=== PATIENT | female | born 1995 | race Caucasian/White ===

== ENCOUNTER 2016-10-20 13:12 | Emergency (ER) | payer OTHER ==
[~2016-10-20] VITALS: Ht 170.2 cm; Wt 67.0 kg
[2016-10-20 13:21] VITALS: TEMP 36.7; Ht 170.2 cm; Wt 67.0 kg
[2016-10-20] MEDS ORDERED: ONDANSETRON 4MG OD TAB PO STA (13:37)
[2016-10-20] MEDS ORDERED: LEVOIUD IU (13:44)
--- NOTE | 2016-10-20 14:37 | DIAGNOSTIC IMAGING REPORT ---
CT OF THE HEAD WITHOUT CONTRAST CLINICAL HISTORY: Fall with headache, nausea and vomiting. Concussion. COMPARISON STUDY: No previous studies for comparison. TECHNIQUE: Helical axial images of the head were obtained without IV contrast. Automated exposure control was utilized for the study. FINDINGS: No acute intracranial hemorrhage, midline shift or mass effect is present. Brain volume is normal. Ventricular system is normal. Basilar cisterns are patent. There are no extra-axial collections. Roque-white differentiation is maintained. There is no calvarial fracture. IMPRESSION: 1. No acute intracranial findings. 2. No calvarial fracture. Electronically signed by: Kris Pack M.D. 10/20/2016 2:36 PM Dictated Date/Time: 10/20/2016 2:33 PM
--- NOTE | 2016-10-20 14:49 | DIAGNOSTIC IMAGING REPORT ---
MAXILLOFACIAL CT WITHOUT CONTRAST CLINICAL HISTORY: R orbital pain; struck with ball COMPARISON STUDY: None. TECHNIQUE: A maxillofacial CT was performed without IV contrast. Coronal and sagittal reformats were viewed. FINDINGS: No acute facial fracture is identified. The globes are intact. There is no retrobulbar hematoma. There is a mucous retention cyst within the left maxillary sinus with mild mucosal thickening of the right maxillary sinus. There is no skull base fracture or fracture within visualized portions of the upper cervical spine. IMPRESSION: 1. No acute facial fracture. 2. Globes intact with no retrobulbar hematoma. Electronically signed by: Kris Pack M.D. 10/20/2016 2:47 PM Dictated Date/Time: 10/20/2016 2:43 PM
[2016-10-20 15:55] VITALS: BP 112/73; PULSE 88; O2SAT 97
--- NOTE | 2016-10-20 21:27 | EMERGENCY ROOM VISIT NOTE ---
ED Visit Note First contact with patient: 13:27 Chief Complaint: Head injury. History of Present Illness: Ms. Mancuso is a 20-year-old white female who ambulates into the ED complaining of a possible head injury. Patient reports 2 evenings ago she was playing broom ball; ice hockey like game played on ice with a round ball and broom. While playing she slipped on the ice and fell backwards onto her occipital scalp. She reports at the time of the fall she did not have a loss of consciousness. Shortly after her fall she reports she was struck in the right orbit with the ball. After these injury she reports she was experiencing a mild headache that increased in intensity yesterday. Currently she describes her discomfort as a global pressure sensation. She rates her discomfort 7/10. Her pain is nonradiating. Her pain worsens with exposure to bright light. She has not identified any alleviating factors related to her discomfort. Associated with her pain she reports today she became nauseated shortly after waking and since that time has vomited multiple times. Additionally she complains of pain around the right orbit where she was struck with the ball. She describes this as an achy pain that becomes sharp with palpation. She does not rates this discomfort. She has taken ibuprofen yesterday for her pain and has had no relief of her discomfort. Additionally associated with her symptoms she is reporting that she is having mild dizziness predominantly with head movements and pressure behind the eyes. She denies fevers, chills, sweats, skin eruptions, skin color changes, vision changes, hearing changes, difficulty speaking, difficulty swallowing, difficulty ambulating/coordinating body movements, neck pain, back pain, chest pain, shortness of breath, abdominal pain, extremity weakness/numbness/tingling. Review of Systems: As noted above in history of present illness. All body systems were reviewed and found to be negative as noted above. Past Medical History: Patient denies. Current Medications: control. Allergies to Medications: Patient denies. Social History: Patient is currently University student; she felt safer home environment; she denies tobacco use; she admits to alcohol use. Physical Examination: Vital Signs: Date Time Temp Pulse Resp B/P Pulse Ox O2 Delivery O2 Flow Rate FiO2 10/20/16 15:55 88 112/73 97 10/20/16 13:56 16 4/30/17 13:21 36.7 82 20 107/71 97 Room Air GENERAL: 20-year-old female in mild distress due to pain, nontoxic-appearing, afebrile and hemodynamically stable. NEUROLOGICAL: Awake, alert and oriented to person, place and time. Answering questions appropriately and following commands. Normal gait. Good hand eye coordination. No focal motor or sensory deficits. [place] Coma Scale score 15. Romberg test unsteady but negative. Pronator drift test negative. Cranial nerves II through XII grossly intact. Normal rapid alternating movements of the hands. Able to spell and count backwards. Good short-term and long-term recall. Normal heel gomez test. SKIN: Warm, dry and pink. No soft tissue trauma noted. HEENT: Atraumatic and normocephalic. Skull: No bony deformity, tenderness, swelling or ecchymosis. No raccoon's eyes or turner signs. No drainage from the ears or the nostril; no hemotympanum. Face: Moderate tenderness over the right superior and inferior aspect of the orbit, the right medial nasal bone and over the first portion of the zygomatic arch. I do not appreciate any bony crepitus or ecchymosis. PERRLA. EOMI without nystagmus. Funduscopic examination was deferred due to light sensitivity. Sclera white and conjunctiva pink. No malocclusion. No intraoral trauma. Airway patent. Speech is normal and clear. Trachea midline. No jugular venous distention. BACK: No tenderness over the bony cervical and thoracic spine. Full range of motion of the cervical spine. EXTREMITIES: Moves all extremities well on command and with purpose. All distal neurovascular statuses are intact and equal bilaterally. 4/5 muscle strength in all movements of the shoulders, elbows, forearms, wrists, hips, knees and ankles against resistance. ED Course: Patient is assessed as noted above. Head CT: Was reviewed by myself and read by the radiologist showing no acute intracranial abnormalities or skull fractures. Facial CT: Was reviewed by myself and read by the radiologist and shows no facial fractures. Patient was offered pain medication and refused. Patient was given 4 mg of Zofran ODT for nausea. Patient was educated about tonight's findings and instructed on her treatment plan; she verbalizes understanding and agreement with this plan. Clinical Impression: Concussion. Facial pain. Disposition: Patient discharged home in stable condition; prior to departure she was reassessed and subjectively reported she was feeling better and rated her facial and head discomfort 5/10 and reported resolution of nausea. Plan: Patient was encouraged to use ibuprofen or acetaminophen every 6 hours as needed for pain. Patient was prescribed Zofran and encouraged to use 4 mg every 6 hours as needed for nausea/vomiting. Patient was encouraged to use ice over areas of pain on her face. Patient was encouraged to wish strenuous activity for the next 7 days. Patient was encouraged to avoid alcohol use for the next 48 hours. Patient was encouraged to follow-up with the local concussion clinic. Patient was educated on signs of worsening head injury. Patient was encouraged return ED for any signs of worsening head injury, uncontrolled pain or any new/concerning symptoms.
== END 2016-10-20 15:56 | disposition home or self-care (01) ==
LOC: C.EDB 13:15 → C.EDD 15:56
DX: S06.0X0A Concussion without loss of consciousness, initial encounter (principal); V00.218A Other ice-skates accident, initial encounter; Y93.89 Activity, other specified; W22.09XA Striking against other stationary object, initial encounter; W21.00XA Struck by hit or thrown ball, unspecified type, initial encounter; Z79.3 Long term (current) use of hormonal contraceptives